=== PATIENT | male | born 2000 | race Caucasian/White ===

== ENCOUNTER 2022-06-25 05:55 | Emergency (ER) | payer OTHER ==
[~2022-06-25] VITALS: Ht 167.6 cm; Wt 72.7 kg
[2022-06-25] MEDS ORDERED: LORazepam 1 MG TABLET PO ONE (06:30)
[2022-06-25 06:37] LABS: AMPHET/METH SCREEN,URINE POSITIVE (NEGATIVE); BARBITURATE SCREEN, URINE NEGATIVE (NEGATIVE); BENZODIAZEPINES SCREEN,URINE NEGATIVE (NEGATIVE); CANNABINOID SCREEN,URINE NEGATIVE (NEGATIVE); COCAINE SCREEN,URINE NEGATIVE (NEGATIVE); METHADONE SCREEN, URINE NEGATIVE (NEGATIVE); OPIATE SCREEN,URINE NEGATIVE (NEGATIVE)
[2022-06-25 06:41] LABS: PHENCYCLIDINE SCREEN,URINE NEGATIVE (NEGATIVE)
[2022-06-25 06:49] LABS: BASOPHILS % (AUTO) 0.2 % (0.0-2.0); EOSINOPHILS % (AUTO) 0.2 % (1.0-6.0); HEMATOCRIT 45.2 % (41-53); HEMOGLOBIN 15.7 g/dL (13.5-17.5); LYMPHOCYTES # (AUTO) 0.9 K/uL (1.0-4.8); LYMPHOCYTES % (AUTO) 13.8 % (22.0-44.0); MEAN CORPUSCULAR HEMOGLOBIN 31.4 pg (26.0-34.0); MEAN CORPUSCULAR HGB CONC 34.7 G/dL (31.0-37.0); MEAN CORPUSCULAR VOLUME 91 fL (80-100); MONOCYTES # (AUTO) 0.6 K/uL (0.1-1.0); MONOCYTES % (AUTO) 9.8 % (2.0-9.0); NEUTROPHILS # (AUTO) 4.8 K/uL (1.8-7.7); PLATELET COUNT (AUTO) 238 K/uL (150-450); RED BLOOD CELL COUNT(AUTO) 4.99 MIL/uL (4.50-5.90); RED CELL DISTRIBUTION WIDTH 12.3 % (11.5-14.5)
[2022-06-25 07:01] LABS: ANION GAP 6 mmol/L (8-16); CALCIUM, TOTAL 9.8 mg/dL (8.8-10.5); CARBON DIOXIDE 30 mmol/L (22-29); CHLORIDE 99 mmol/L (98-107); GLOMERULAR FILTR. RATE CALC > 60 mL/min (>60); GLUCOSE,RANDOM 105 mg/dL (70-110); POTASSIUM 5.1 mmol/L (3.5-5.1); SODIUM SERUM 135 mmol/L (136-145); UREA NITROGEN, BLOOD 10 mg/dL (7-18)
[2022-06-25 07:06] LABS: ALANINE AMINOTRANSFERASE 31 U/L (12-78); ALBUMIN 4.7 g/dL (3.4-5.0); ALKALINE PHOSPHATASE 65 U/L (46-116); ASPARTATE AMINOTRANSFERASE 23 U/L (15-37); BILIRUBIN,TOTAL 0.3 mg/dL (0.1-1.0); TOTAL PROTEIN, SERUM 8.7 g/dL (6.4-8.2)
[2022-06-25 09:00] VITALS: BP 135/85
[2022-06-25] MEDS ORDERED: HALOPERIDOL 5 MG TABLET PO ONE (09:00)
== END 2022-06-25 09:57 | disposition home or self-care (01) ==
LOC: EMS 05:56
DX: F15.90 Other stimulant use, unspecified, uncomplicated (principal); F22 Delusional disorders; G47.00 Insomnia, unspecified; F32.A Depression, unspecified; Z98.890 Other specified postprocedural states
CPT/HCPCS: 99284; 80053; 85025; 36415; 80307; G0480